=== PATIENT | male | born 1945 | race Asian ===

== ENCOUNTER → 2021-01-17 08:59 | Outpatient (CLI) | payer MEDICARE, OTHER, SELFPAY ==
[2021-01-17 11:53] LABS: COVID19 -Nasal RAPID Negative (Negative)
== END ==
PROVIDERS: Visit Provider Student in an Organized Health Care Education/Training Program
DX: Z01.812 Encounter for preprocedural laboratory examination (principal); Z20.822 Contact with and (suspected) exposure to COVID-19
CPT/HCPCS: 87635; C9803

== ENCOUNTER → 2021-01-19 10:31 | Outpatient (CLI) | payer MEDICARE, OTHER, SELFPAY ==
--- NOTE | 2021-01-19 | DI.NM.S_ITS ---
PROCEDURE: NM DEMIAN PERF SPECT REST & STR Rest and exercise myocardial perfusion SPECT with gated imaging and ejection fraction RADIOPHARMACEUTICAL: 25.6 mCi Tc-99m sestamibi IV at rest and 27.1 mCi Tc-99m sestamibi IV at peak exercise. A two day-protocol was performed. INDICATIONS: Other chest pain TECHNIQUE: Radiopharmaceutical was injected at peak stress test, and also at rest. SPECT images were obtained. SPECT myocardial perfusion images were displayed in short axis, horizontal long axis, and vertical long axis views. Gated images were reviewed using [employer] software. COMPARISON: None. CARDIAC STRESS: A standard Brad treadmill exercise tolerance test was performed by the patient under the supervision of an attending staff. The patient exercised for 6 minutes and 36 seconds; functional aerobic impairment (GALE) is -10%. Hemodynamic data: There is normal heart rate response to exercise stress. Patient achieved 94% of maximum predicted heart rate at peak exercise. Mildly hypertensive response to exercise (resting BP 130/70mmHg, max BP 180/106mmHg). Symptoms: Patient denied chest pain during exercise. EKG: Sinus rhythm with non-specific ST changes at rest. Mild horizontal ST depressions in the anterolateral leads during recovery; occasional PVCs. FINDINGS: Raw data: There is good myocardial labeling by radiotracer. No significant motion artifacts. Cnbi-kh-yhwst ratio is 0.36 (normal is less than 0.38 for sestamibi tracer, and less than 0.50 for thallium tracer). Left ventricle function: Gated images demonstrate normal left ventricle wall thickening. No segmental wall motion abnormality. No transient ischemic dilation; TID is 1.05 (normal less than 1.3). The left ventricle resting end-diastolic volume is 116 mL. Left ventricle stress ejection fraction is 72%; normal values are above 45%. Myocardial perfusion: There is moderately intense fixed inferior wall defect that resolves with prone imaging, suggesting diaphragmatic attenuation artifact. No ischemia or infarction. IMPRESSION: Low risk, probably normal treadmill nuclear stress test 1) There is moderately intense fixed inferior wall defect that resolves with prone imaging, suggesting diaphragmatic attenuation artifact. No ischemia or infarction. 2) Normal left ventricular size, wall motion, and systolic function (EF post stress 72%). 3) Mild horizontal ST depressions in the anterolateral leads during recovery. These changes are non-diagnostic in the setting of reassuring perfusion images. 4) No angina during the study. 5) Above average exercise capacity (7.0 METs, GALE -10%). Target heart rate achieved. 6) Hypertensiive BP response to exercise (resting BP 130/70mmHg, max BP 180/106mmHg). 7) No prior nuclear stress test available for comparison. Dictated by: Rick Soto MD on 01/23/2021 at 16:25 Approved by: Rick Soto MD on 01/23/2021 at 16:30
--- NOTE | 2021-01-19 11:52 | PM.TREADMILL ---
Cardiac Stress Test Report Referral & Results Date Patient Seen: 01/19/21 Time Patient Seen: 11:52 Requesting provider: Jose Fu Indication: Chest pain Rest ECG: Sinus rhythm Procedure Note: Standard Brad protocol, 6:36 mins, 7.5 METS Good exercise capacity, GALE -10% Normal hemodynamic response to exercise No chest pain or anginal symptoms Nonspecific ST changes at peak exercise Occasional couplets and PVCs Impression: Normal exercise stress test Please note: Actual ECG tracings can be found in the PACS system.
== END ==
PROVIDERS: PCP Internal Medicine; Referring Provider Internal Medicine; Visit Provider Internal Medicine
DX: R07.89 Other chest pain (principal); E11.29 Type 2 diabetes mellitus with other diabetic kidney complication
CPT/HCPCS: 78452; 93017; A9502

== ENCOUNTER → 2022-01-04 11:03 | Outpatient (CLI) | payer MEDICARE, OTHER, SELFPAY ==
--- NOTE | 2022-01-04 | DI.ECHO.S_ITS ---
[facility]---------+ [facility] +---------+ : : [id number] [place] : : : : [id number] : : : : Phone: [phone]+ Echocardiogram Report + + :Name: SAMI SANTOS Study Date: 01/04/2022 Height: 67 in : :[facility] ReadingLocation: Weight: 217 lb : : Gender: Male BSA: 2.1 m2 : :: 1945 Age: 76 yrs BP: 143/90 mmHg: :Reason For Study: Atrial fibrillation : :Ordering Physician: : :TITA RIOS Performed By: Jass Magallanes : :Referring: TITA RIOS : + + Interpretation Summary 1) Normal left ventricular thickness, size, wall motion, and systolic function (EF 60-65%). 2) Normal right ventricular size and function. 3) No significant valvular abnormalities. 4) No prior Echo available for comparison. Procedure: A two-dimensional transthoracic echocardiogram with color flow and Doppler was performed. The study quality was technically adequate. There is no prior echocardiogram noted for this patient. Left Ventricle: The left ventricle is normal in size and wall thickness. Left ventricular systolic function is normal. The ejection fraction is estimated to be 60-65%. There are no focal wall motion abnormalities. Diastolic function could not be accurately assessed due to contradictory data. Right Ventricle: The right ventricle is normal in size and function. Atria: Both atria are normal in size. The interatrial septum grossly appears intact with no obvious evidence for an atrial septal defect. Mitral Valve: The mitral valve is normal in structure and function. There is mild mitral regurgitation. Aortic Valve: The aortic valve is normal in structure and function. There is no aortic valve stenosis. No aortic regurgitation is present. Tricuspid Valve: The tricuspid valve is normal in structure and function. There is mild tricuspid regurgitation. The right ventricular systolic pressure is estimated to be at least 36 mmHg based on an estimated right atrial pressure of 3 mm Hg. Pulmonic Valve: The pulmonic valve is normal in structure and function. There is mild pulmonic regurgitation. Great Vessels: The aortic root is normal size. The ascending aorta is at the upper limits of normal in size. The IVC is of normal diameter and collapses greater than 50% with a sniff. This suggests a low right atrial pressure of 3 mm Hg. Pericardium/ Pleura There is no pericardial effusion. There is no pleural effusion. MMode/2D Measurements & Calculations LVIDd: 5.6 cm LVOT diam: 2.2 cm LVIDs: 3.6 cm Ao root diam: 3.7 cm FS: 35.2 % asc Aorta Diam: 3.9 cm IVSd: 1.00 cm LVPWd: 1.1 cm LV crooks. diameter/BSA (cm/m^2): 2.7 LV sys. diameter/BSA (cm/m^2): 1.7 LA A2 area: 17.0 cm2 RA long axis: 4.7 cm LA A4 area: 14.9 cm2 RA area: 15.2 cm2 LA length (vol): 5.0 cm RA vol: 42.1 ml LA vol: 42.8 ml RA : 20.1 ml/m2 LA vol index: 20.5 ml/m2 TAPSE: 2.6 cm Doppler Measurements & Calculations Ao V2 max: 102.5 cm/sec LVOT Max Kuldip: 86.1 cm/sec Ao V2 mean: 70.3 cm/sec LV V1 max P.0 mmHg Ao max P.2 mmHg LV V1 VTI: 17.5 cm Ao mean P.2 mmHg JOSE(I,D): 3.3 cm2 Ao V2 VTI: 21.1 cm JOSE(V,D): 3.3 cm2 sev ratio: 0.83 JOSE indexed to BSA (cm^2/m^2): 1.6 MV E max kuldip: 47.2 cm/sec TR max kuldip: 286.8 cm/sec MV A max kuldip: 73.9 cm/sec TR max P.9 mmHg MV E/A: 0.64 Med Peak E' Kuldip: 3.3 cm/sec E/E' med: 14.3 Lat Peak E' Kuldip: 6.3 cm/sec E/E' lat: 7.5 E/e' average: 10.9 MV dec time: 0.41 sec SV(LVOT): 68.7 ml Reading Physician:01:44 PM
== END ==
PROVIDERS: PCP Internal Medicine; Referring Provider Internal Medicine; Visit Provider Internal Medicine
DX: I48.0 Paroxysmal atrial fibrillation (principal); I08.1 Rheumatic disorders of both mitral and tricuspid valves
CPT/HCPCS: 93306

== ENCOUNTER → 2022-03-20 13:53 | Outpatient (CLI) | payer MEDICARE, OTHER, SELFPAY ==
[2022-03-20 16:00] LABS: Add Manual Diff / Slide Review NO; Basophils Absolute Auto 100 /uL (0-100); Basophils Percent Auto 1.9 % (0-2); Eosinophils Absolute Auto 200 /uL (0-450); Eosinophils Percent Auto 3.4 % (2-4); Hematocrit 38.6 % (41-53); Hemoglobin 13.4 g/dL (13.5-17.5); Lymphocytes Absolute Auto 1700 /uL (1100-4500); Lymphocytes Percent Auto 26.3 % (25-40); Mean Corpuscular HGB Conc 34.7 % (30-36); Mean Corpuscular Hemoglobin 30.2 PG (26-34); Mean Corpuscular Volume 87.1 fL (80-100); Monocytes Absolute Auto 700 /uL (0-900); Monocytes Percent Auto 11.3 % (3-14); Neutrophils Absolute Auto 3700 /uL (1500-7000); Neutrophils Percent Auto 57.1 % (50-75); Platelet Count 217 X10^3/uL (150-400); Red Blood Cell Count 4.43 X10^6/uL (4.5-5.9); Red Cell Distribution Width 13.4 % (11.6-14.8); White Blood Cell Count 6.5 X10^3/uL (4.5-11.0)
[2022-03-20 16:17] LABS: Hemoglobin A1C% w Est Avg Glu 6.1 % (4.0-6.0)
[2022-03-20 16:21] LABS: BUN Creatinine Ratio 20.4 (6-22); Blood Urea Nitrogen 31 mg/dL (9-20); Calcium 9.3 mg/dL (8.4-10.2); Carbon Dioxide 22 mmol/L (22-32); Chloride 104 mmol/L (98-107); Estimated Glomerular Filt Rate 47 mL/min (>60); Glucose 143 mg/dL (80-110); HEMOLYSIS < 15 (0-50); Sodium 136 mmol/L (137-145); Uric Acid 5.6 mg/dL (3.5-8.5)
[2022-03-20 16:50] LABS: TSH w/ Reflex to FT4 0.33 uIU/mL (0.47-4.68)
[2022-03-20 21:02] LABS: Free T4, Direct Thyroxine 1.58 ng/dL (0.78-2.19)
== END ==
PROVIDERS: PCP Internal Medicine; Referring Provider Internal Medicine Cardiovascular Disease; Visit Provider Internal Medicine Cardiovascular Disease
DX: E79.0 Hyperuricemia without signs of inflammatory arthritis and tophaceous disease (principal); E11.29 Type 2 diabetes mellitus with other diabetic kidney complication; I48.0 Paroxysmal atrial fibrillation
CPT/HCPCS: 36415; 80048; 83036; 84439; 84443; 84550; 85025

== ENCOUNTER → 2023-03-19 09:05 | Outpatient (CLI) | payer MEDICARE, OTHER, SELFPAY ==
[2023-03-19 09:52] LABS: Add Manual Diff / Slide Review NO; Basophils Absolute Auto 100 /uL (0-100); Basophils Percent Auto 1.6 % (0-2); Eosinophils Absolute Auto 200 /uL (0-450); Eosinophils Percent Auto 4.2 % (2-4); Hematocrit 39.9 % (41-53); Hemoglobin 13.5 g/dL (13.5-17.5); Lymphocytes Absolute Auto 1300 /uL (1100-4500); Lymphocytes Percent Auto 25.5 % (25-40); Mean Corpuscular HGB Conc 33.9 % (30-36); Mean Corpuscular Hemoglobin 28.8 PG (26-34); Monocytes Absolute Auto 500 /uL (0-900); Monocytes Percent Auto 10.6 % (3-14); Neutrophils Absolute Auto 3000 /uL (1500-7000); Neutrophils Percent Auto 58.1 % (50-75); Platelet Count 224 X10^3/uL (150-400); Red Cell Distribution Width 14.9 % (11.6-14.8); White Blood Cell Count 5.2 X10^3/uL (4.5-11.0)
[2023-03-19 10:00] LABS: Hemoglobin A1C% w Est Avg Glu 6.2 % (4.0-6.0)
[2023-03-19 10:20] LABS: BUN Creatinine Ratio 16.7 (6-22); Blood Urea Nitrogen 22 mg/dL (9-20); Calcium 9.4 mg/dL (8.4-10.2); Carbon Dioxide 26 mmol/L (22-32); Chloride 105 mmol/L (98-107); Cholesterol 104 mg/dL (140-199); Estimated Glomerular Filt Rate 56 mL/min (>60); Glucose 117 mg/dL (80-110); HDL Cholesterol 44 mg/dL (40-60); HEMOLYSIS < 15 (0-50); LDL Cholesterol Calculated 43 mg/dL (<100); Potassium 4.4 mmol/L (3.4-5.1); Sodium 139 mmol/L (137-145); Triglycerides 86 mg/dL (35-150)
== END ==
PROVIDERS: PCP Internal Medicine; Referring Provider Internal Medicine Cardiovascular Disease; Visit Provider Internal Medicine Cardiovascular Disease
DX: E11.9 Type 2 diabetes mellitus without complications (principal); E78.5 Hyperlipidemia, unspecified; I10 Essential (primary) hypertension
CPT/HCPCS: 36415; 80048; 80061; 83036; 85025

== ENCOUNTER → 2024-04-20 08:15 | Outpatient (CLI) | payer MEDICARE, OTHER, SELFPAY ==
[2024-04-20 09:40] LABS: Hematocrit 41.2 % (41-53); Hemoglobin 13.6 g/dL (13.5-17.5); Mean Corpuscular HGB Conc 32.9 % (30-36); Mean Corpuscular Hemoglobin 27.5 PG (26-34); Mean Corpuscular Volume 83.5 fL (80-100); Platelet Count 210 X10^3/uL (150-400); Red Blood Cell Count 4.93 X10^6/uL (4.5-5.9); Red Cell Distribution Width 16.8 % (11.6-14.8); White Blood Cell Count 4.2 X10^3/uL (4.5-11.0)
[2024-04-20 09:50] LABS: HEMOLYSIS < 15 (0-50)
[2024-04-20 10:22] LABS: Alanine Aminotransferase 20 IU/L (<50); Albumin 3.8 g/dL (3.5-5.0); Albumin Globulin Ratio 1.5 (1.0-2.8); Alkaline Phosphatase 76 U/L (38-126); Aspartate Aminotransferase 24 IU/L (17-59); BUN Creatinine Ratio 19.4 (6-22); Bilirubin Total 0.7 mg/dL (0.2-1.3); Blood Urea Nitrogen 27 mg/dL (9-20); Calcium 9.3 mg/dL (8.4-10.2); Carbon Dioxide 25 mmol/L (22-32); Chloride 105 mmol/L (98-107); Cholesterol 123 mg/dL (140-199); Estimated Glomerular Filt Rate 52 mL/min (>60); Globulin 2.5 g/dL (1.7-4.1); Glucose 108 mg/dL (80-110); HDL Cholesterol 63 mg/dL (40-60); LDL Cholesterol Calculated 49 mg/dL (<100); Potassium 3.9 mmol/L (3.4-5.1); Sodium 136 mmol/L (137-145); Total Protein 6.3 g/dL (6.3-8.2); Triglycerides 55 mg/dL (35-150); Uric Acid 4.3 mg/dL (3.5-8.5)
[2024-04-20 10:52] LABS: TSH w/ Reflex to FT4 0.36 uIU/mL (0.47-4.68)
[2024-04-20 11:18] LABS: Hemoglobin A1C% w Est Avg Glu 6.2 % (4.0-6.0)
[2024-04-20 11:25] LABS: NT-proBNP (BNP-Adult 18+) 1030 pg/mL (<450)
[2024-04-20 11:33] LABS: Free T4, Direct Thyroxine 1.63 ng/dL (0.78-2.19)
== END ==
PROVIDERS: PCP Internal Medicine; Referring Provider Internal Medicine Cardiovascular Disease; Visit Provider Internal Medicine Cardiovascular Disease
DX: I50.30 Unspecified diastolic (congestive) heart failure (principal); R06.09 Other forms of dyspnea; E11.22 Type 2 diabetes mellitus with diabetic chronic kidney disease; E78.5 Hyperlipidemia, unspecified; E03.9 Hypothyroidism, unspecified; R06.9 Unspecified abnormalities of breathing
CPT/HCPCS: 36415; 80053; 80061; 83036; 83880; 84439; 84443; 84550; 85027